=== PATIENT | female | born 1990 | race African-American/Black ===

== ENCOUNTER 2021-11-23 23:33 | Observation (INO) | payer MEDICAID ==
[~2021-11-23] VITALS: Ht 160 cm; Wt 78.5 kg
[2021-11-24] MEDS ORDERED: PRENATAL VITAMINS (00:15)
== END 2021-11-24 02:00 | disposition home or self-care (01) ==
LOC: 8 EST LDRP 23:33
PROVIDERS: ADMIT Obstetrics & Gynecology; ATTEND Obstetrics & Gynecology
DX: O26.893 Other specified pregnancy related conditions, third trimester (principal); N89.8 Other specified noninflammatory disorders of vagina; R20.0 Anesthesia of skin; O99.891 Other specified diseases and conditions complicating pregnancy; M54.50 Low back pain, unspecified; Z3A.29 29 weeks gestation of pregnancy
CPT/HCPCS: 59025; 76805; 76818; G0378; 99281

== ENCOUNTER 2021-12-03 15:09 | Emergency (ER) | payer MEDICAID ==
[~2021-12-03] VITALS: Ht 167.6 cm; Wt 79.0 kg
[~2021-12-03 15:09] MED LIST: PRENATAL VITAMINS
[2021-12-03 15:20] VITALS: BP 116/69
== END 2021-12-03 20:59 | disposition left against medical advice (07) ==
LOC: ER 15:09
DX: Z53.21 Procedure and treatment not carried out due to patient leaving prior to being seen by health care provider (principal)